=== PATIENT | female | born 1985 | race Caucasian/White ===

== ENCOUNTER 2018-05-01 20:15 | Emergency (ER) | payer OTHER ==
--- NOTE | 2018-05-01 21:35 | NUR ---
CALLED FOR TRIAGE; NO ANSWER
--- NOTE | 2018-05-01 22:24 | NUR ---
INFORMED "PT LEFT"
== END 2018-05-01 22:24 | disposition left against medical advice (07) ==
LOC: ER 20:25
DX: R51 Headache (principal); Z53.21 Procedure and treatment not carried out due to patient leaving prior to being seen by health care provider